=== PATIENT | male | born 1995 | race Caucasian/White ===

== ENCOUNTER 2021-03-31 17:12 | Emergency (ER) | payer MEDICAID ==
[~2021-03-31] VITALS: Ht 180.3 cm; Wt 64.0 kg
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
[2021-03-31 20:38] VITALS: BP 125/67
--- NOTE | 2021-03-31 21:24 | NUR ---
Patient given discharge instructions and they have confirmed that they understand the instructions. Patient ambulatory with steady gait. NAD, all questions answered appropriately, denies additional needs at this time. No personal belongings left in room after discharge.
== END 2021-03-31 21:26 | disposition home or self-care (01) ==
LOC: ED 21:20
DX: S63.512A Sprain of carpal joint of left wrist, initial encounter (principal); W01.0XXA Fall on same level from slipping, tripping and stumbling without subsequent striking against object, initial encounter; Y93.89 Activity, other specified; Y92.410 Unspecified street and highway as the place of occurrence of the external cause; Y99.8 Other external cause status
CPT/HCPCS: 29125; 99283